=== PATIENT | male | born 1980 | race Caucasian/White ===

== ENCOUNTER 2024-02-06 10:20 | Emergency (ER) | payer SELFPAY ==
[2024-02-06 10:23] VITALS: BP 139/86
--- NOTE | 2024-02-06 10:29 | ED.GENMED ---
History of Present Illness
General
Chief Complaint: Trauma Significant Mechanism
Time Seen by Provider: 02/06/24 10:29
History of Present Illness
History of Present Illness:
TIME OF INITIAL ENCOUNTER: 10:30 AM
HPI: Patient fell from a ladder (ladder slid out from under him) approximately 12 feet while at work today and came in due to left lower extremity pain. The pain is at both the left hip and the left knee. There is minimal discomfort to the right
side.
EXAM:
GENERAL: Well appearing in no distress
CERVICAL SPINE: No midline c-spine tenderness with excellent AROM
HEAD: No evidence of craniofacial trauma
CHEST: No chest wall tenderness, normal heart sounds
LUNGS: Equal lung sounds, no respiratory distress
ABDOMEN: No abdominal tenderness, no peritoneal signs
EXTREMITIES: There is some mild soft tissue swelling most notable at the left knee, decreased active range of motion at the left knee and the left hip related the pain, no significant bony tenderness, there is a very superficial abrasion/laceration
to the anterior aspect of the left knee that does not require repair
NEURO: Excellent strength all extremities, appropriate mental status, normal speech/language
NUMBER AND COMPLEXITY OF PROBLEMS ADDRESSED AT THE ENCOUNTER
� Chronic conditions affecting care: No significant past medical history
� Acute Exacerbation and/or Progression of Chronic Illness: This is an acute problem
� Differential Diagnosis includes: Ligamentous injury, other soft tissue injury, fracture, dislocation
AMOUNT AND/OR COMPLEXITY OF DATA TO BE REVIEWED AND ANALYZED
� I performed an independent evaluation of and my interpretation is:
EKG:
CT:
X-rays: X-rays of the pelvis, left hip, left femur, left knee are unremarkable and I personally reviewed these and agree with radiologist interpretation
Laboratory Studies:
Other:
� Review of other/old records: No old records available for review
� Clinical information was obtained by an independent historian: I spoke to either family member or coworker at bedside
� Prescriptions/Medications Considered but not given: The patient initially declined analgesia but then was later given Motrin
� Further testing considered but not performed:
RISK OF COMPLICATIONS AND/OR MORBIDITY OR MORTALITY OF PATIENT MANAGEMENT
� Social determinants of health affecting care: Lives at home
� Discussion with other providers:
� Escalation of care including admission/observation vs risk of discharge considered: The patient was given crutches as he has trouble ambulating. X-rays reassuring.
ANY OTHER UPDATES:
Phy Exam
Physical Exam
Physical Exam:
See HPI
Course
Orders/Labs/Results
Orders:
Orders
02/06/24 10:35
CR Femur - Left Min 2 Vw Urgent
Comment:
Reason For Exam: trauma
CR Hip - LT w/wo Pel 2-3 Vw* Urgent
Comment:
Reason For Exam: trauma
Include a pelvis x-ray?: Yes
CR Knee - Left 1 Or 2 Views Urgent
Reason For Exam: trauma
02/06/24 11:47
Crutches-Treatment ONCE
Ibuprofen [Motrin] 800 mg PO NOW STA
Vital Signs
Initial and Last Documented VS:
Initial Vital Signs
Temp Pulse Resp BP Pulse Ox
37.1 C 83 16 139/86 98
02/06/24 10:23 02/06/24 10:23 02/06/24 10:23 02/06/24 10:23 02/06/24 10:23
Last Documented Vital Signs
Temp Pulse Resp BP Pulse Ox
37.1 C 83 16 127/92 98
02/06/24 10:23 02/06/24 10:23 02/06/24 10:55 02/06/24 10:55 02/06/24 10:51
*Critical Care Note
Total Time (30-74mins, 75-104mins- exclusive of procedures): Not Applicable
ED Attending Note
-
Portions of this chart may have been created with voice recognition software.� Occasional wrong word or��sound alike� substitutions may have occurred due to the inherent limitations of voice recognition software.
Discharge Plan
Departure
Referrals:
NONE,* [Family Provider] -
Interventions
Interventions:
*Risk Screen - Suicide Last Done: 02/06/24 10:23
*General Assessment Last Done: 02/06/24 10:51
*Neglect/Abuse Screening Last Done: 02/06/24 10:23
ED- Fall Risk Assessment Last Done: 02/06/24 10:51
*ED COVID-19 Vaccine History Last Done: 02/06/24 10:51
Discharge Date and Time
Print Language: POLISH
[2024-02-06 10:55] VITALS: BP 127/92
[2024-02-06] MEDS: MOTRIN 800 MG PO (11:56)
== END 2024-02-06 12:56 | disposition home or self-care (01) ==
LOC: EMR 10:20
PROVIDERS: EMERGENCY PHYSICIAN Emergency Medicine
DX: S80.212A Abrasion, left knee, initial encounter (principal); M25.552 Pain in left hip; W11.XXXA Fall on and from ladder, initial encounter; Y99.0 Civilian activity done for income or pay
CPT/HCPCS: 99284; 73502; 73552; 73560